=== PATIENT | female | born 1945 | race Caucasian/White ===

== ENCOUNTER 2016-09-30 10:25 | Outpatient (CLI) | payer MEDICARE, OTHER | END 2016-09-30 10:26 | disposition home or self-care (01) | DX: R07.89 Other chest pain (principal); R06.00 Dyspnea, unspecified | CPT/HCPCS: 78452; 93017; A9500 ==

== ENCOUNTER 2017-05-11 08:36 | Outpatient (CLI) | payer MEDICARE, OTHER | END 2017-05-11 08:37 | disposition home or self-care (01) | LOC: SC 08:36 | PROVIDERS: ATTEND Specialist | DX: F51.01 Primary insomnia (principal); R06.83 Snoring; G25.81 Restless legs syndrome | CPT/HCPCS: 99205; G0463; 99212 ==

== ENCOUNTER 2018-06-23 17:23 | Emergency (ER) | payer MEDICARE, OTHER ==
[2018-06-23] MEDS ORDERED: predniSONE 20 MG TABLET PO STA (18:07)
[2018-06-23] MEDS ORDERED: diphenhydrAMINE 25 MG CAPSULE PO STA (18:07)
--- NOTE | 2018-06-23 18:10 | ED Physician Documentation ---
History of Present Illness - Stated complaint Stated Complaint: ALLERGIC REACTION/EYES - Chief complaint Chief Complaint: Allergic Rx - History obtained from History obtained from: Patient, Family - History of Present Illness Timing: Today Pain level max: 3 Pain level now: 3 - Additonal information Additional information: Patient is a 72-year-old female that presents to the emergency department with redness and swelling to her face and eyelids after using a new lotion today. Has not taken anything for this. Has itching and burning. No difficulty speaking or swallowing. No difficulty breathing. 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 - Present Medications Home Medications: Ambulatory Orders Medication Instructions Recorded Confirmed predniSONE [Prednisone] 20 mg PO DAILY #5 tablet 06/23/18 - Allergies Allergies/Adverse Reactions: Allergies Allergy/AdvReac Type Severity Reaction Status Date / Time Sulfa (Sulfonamide AdvReac Headache Verified 06/23/18 17:35 Antibiotics) PD ED PE NORMAL - Vitals Vital signs reviewed: Yes - General General: Alert and oriented X 3, No acute distress - HEENT HEENT: Moist mucous membranes - Neck Neck: Supple, no meningeal sign - Cardiac Cardiac: RRR - Respiratory Respiratory: No respiratory distress, Clear bilaterally - Derm Derm: Warm and dry - Neuro Neuro: Alert and oriented X 3 - Psych Psych: Normal mood, Normal affect - Free text exam Free text exam: Erythema and swelling to the bilateral eyelids and face. Mild conjunctival injection with tearing. Results - Vitals Vitals: Vital Signs - 24 hr 06/23/18 17:32 Temperature 36.4 C L Heart Rate 98 Respiratory 18 Rate Blood Pressure 170/103 H O2 Saturation 97 Oxygen O2 Source Room air PD MEDICAL DECISION MAKING - ED course Complexity details: considered differential, d/w patient, d/w family ED course: Patient is a 72-year-old female with an allergic reaction to face cream. Will place on steroids and Benadryl. We will have her follow-up with her doctor for further care. Patient counseled regarding signs and symptoms for which I believe and urgent re-evaluation would be necessary. Patient with good understanding of and agreement to plan and is comfortable going home at this troy e This document was made in part using voice recognition software. While efforts are made to proofread this document, sound alike and grammatical errors may occur. - Sepsis Event Vital Signs: Vital Signs - 24 hr 06/23/18 17:32 Temperature 36.4 C L Heart Rate 98 Respiratory 18 Rate Blood Pressure 170/103 H O2 Saturation 97 Oxygen O2 Source Room air Departure - Departure Disposition: Home, Self Care Clinical Impression: Allergic reaction Qualifiers: Encounter type: initial encounter Qualified Code(s): T78.40XA - Allergy, unspecified, initial encounter Condition: Good Instructions: ED Allergic Reaction General Other Follow-Up: Mavis Cortes MD [Primary Care Provider] - Within 1 week Prescriptions: predniSONE [Prednisone] 20 mg PO DAILY #5 tablet Comments: Take the steroids as prescribed. Return if you worsen. You can also use Benadryl at home, 25 mg every 6 hours. Please do not use the face cream anymore
[2018-06-23 18:33] VITALS: BP 153/80
== END 2018-06-23 18:32 | disposition home or self-care (01) ==
LOC: ED 17:23
DX: T78.49XA Other allergy, initial encounter (principal); X58.XXXA Exposure to other specified factors, initial encounter; R22.9 Localized swelling, mass and lump, unspecified
CPT/HCPCS: 99283; A9270; J7512

== ENCOUNTER 2019-04-12 15:47 | Outpatient (CLI) | payer MEDICARE, OTHER ==
--- NOTE | 2019-04-13 09:15 | Mammography Report ---
Reason: SCREENING MAMMO Procedure Date: 04/12/2019 Accession Number: [id number] / [id number] Procedure: SINCERE - Screening Mammo w/Elia CPT Code: FULL RESULT: EXAM: Screening Mammo w/Elia DATE: 04/12/2019 4:16 PM CLINICAL HISTORY: Screening encounter. No reported risk factors. TECHNIQUE: (B) - Bilateral CC and MLO views were obtained. A left laterally exaggerated CC views obtained. COMPARISON: 10/16/2015 through 09/29/2013. PARENCHYMAL PATTERN: (D) - The breast(s) demonstrate(s) heterogeneously dense fibroglandular parenchyma. FINDINGS: There are coarse typically benign calcifications. There are no suspicious masses, calcifications, or areas of distortion. IMPRESSION: Benign findings. BI-RADS category 2. RECOMMENDATION: (ANNUAL) - Recommend routine annual screening mammography. BI-RADS CATEGORY: (2) - Benign Findings. STANDARD QUALIFYING STATEMENTS: 1. This examination was not reviewed with the aid of Computer-Aided Detection (CAD). 2. A negative or benign imaging report should not preclude biopsy if clinically suspicious findings are present. 3. Dense breasts may obscure an underlying neoplasm. 4. This examination was reviewed with the aid of 3D breast imaging (tomosynthesis).
== END 2019-04-12 15:48 | disposition home or self-care (01) ==
LOC: DI 15:47
PROVIDERS: ATTEND Internal Medicine
DX: Z12.31 Encounter for screening mammogram for malignant neoplasm of breast (principal)
CPT/HCPCS: 77063; 77067

== ENCOUNTER 2019-06-28 16:08 | Outpatient (CLI) | payer MEDICARE, OTHER ==
[2019-06-28 16:21] LABS: BILIRUBIN,URINE NEGATIVE (NEGATIVE); GLUCOSE, URINE (UA) NEGATIVE (NEGATIVE); KETONES,URINE (UA) NEGATIVE (NEGATIVE); LEUKOCYTE ESTERASE, URINE SMALL (NEGATIVE); NITRITE,URINE NEGATIVE (NEGATIVE); OCCULT BLOOD,URINE NEGATIVE (NEGATIVE); PROTEIN,URINE NEGATIVE (NEGATIVE); UROBILINOGEN,URINE 0.2 (NORMAL) E.U./dL (NORMAL)
[2019-06-28 16:29] LABS: CLARITY,URINE CLEAR (CLEAR)
[2019-06-28 16:30] LABS: BACTERIA,URINE Rare /HPF (None Seen); RBC,URINE 0-5 /HPF (0-5); SQUAMOUS EPITHELIAL CELL,UR RARE Squamous (<= Few); WBC CLUMPS,URINE PRESENT
== END 2019-06-28 16:09 | disposition home or self-care (01) ==
LOC: LAB 16:08
PROVIDERS: ATTEND Urology
DX: N39.0 Urinary tract infection, site not specified (principal)
CPT/HCPCS: 81001; 87086

== ENCOUNTER 2021-02-20 08:25 | Outpatient (CLI) | payer MEDICARE, OTHER ==
[2021-02-20] MEDS ORDERED: IOPAMIDOL-300 50 ML VIAL ONE (11:11)
[2021-02-20] MEDS ORDERED: IOVERSOL 320 100 ML VIAL IVP ONE ×2 (11:11→13:15)
[2021-02-20 11:24] LABS: CREATININE 0.6 mg/dL (0.4-1.0)
[2021-02-20] MEDS ORDERED: IOPAMIDOL-300 50 ML VIAL PO ONE (13:15)
--- NOTE | 2021-02-20 16:46 | CT Report ---
PROCEDURE: Abdomen/Pelvis W INDICATIONS: BILATERAL PELVIC PAIN CONTRAST: IV CONTRAST: Optiray 320 ml: 100 PO CONTRAST: Isovue 300 ml50 TECHNIQUE: After the administration of contrast, 5 mm thick sections acquired from the diaphragms to the sym physis. 5 mm thick coronal and sagittal reformats were acquired. For radiation dose reduction, the following was used: automated exposure control, adjustment of mA and/or kV according to patient size . COMPARISON: None. FINDINGS: Image quality: Excellent. ABDOMEN: Lung bases: Lung bases are clear. Heart size is normal. Solid organs: Liver and spleen are normal in size and enhancement. Gallbladder appears normal Bili lior system is non dilated. Pancreas enhances normally. No adrenal nodules. Kidneys demonstrate nor mal size and enhancement, without hydronephrosis. Peritoneum and bowel: Bowel loops demonstrate normal wall thickness and caliber. No free fluid or a ir. Nodes and vessels: No retroperitoneal or mesenteric adenopathy by size criteria. Aorta and inferior vena cava are normal in size. Miscellaneous: No ventral hernias. PELVIS: Genitourinary: Bladder wall thickness is normal. Apparent prior hysterectomy. No adnexal pathology found. Miscellaneous: No inguinal hernias or adenopathy. Diverticulosis is present at the sigmoid colon bu t no acute diverticulitis is found. Bones: No suspicious bony lesions. No vertebral body compression fractures. IMPRESSION: A definite source of current pelvic pain and lower abdominal pain is not seen. Apparent prior hysterectomy. No adnexal pathology found. Throughout the abdomen and pelvis no underlying infec tion or neoplasm is suspected. Reviewed by: Milo Hernandez MD on 02/20/2021 3:45 PM [email or web address] Approved by: Milo Hernandez MD on 02/20/2021 3:45 PM AKDT Station ID: [id number]
== END 2021-02-20 08:26 | disposition home or self-care (01) ==
LOC: LAB 08:25
PROVIDERS: ATTEND Internal Medicine
DX: R10.2 Pelvic and perineal pain (principal); Z79.899 Other long term (current) drug therapy
CPT/HCPCS: 36415; 74177; 82565; Q9967

== ENCOUNTER 2021-04-18 12:14 | Outpatient (CLI) | payer MEDICARE, OTHER ==
[2021-04-18 14:36] LABS: BASOPHILS # (AUTO) 0.1 10^3/uL (0.0-0.1); BASOPHILS % (AUTO) 0.7 %; EOSINOPHILS # (AUTO) 0.2 10^3/uL (0.0-0.7); EOSINOPHILS % (AUTO) 2.1 %; HCT - HEMATOCRIT 42.9 % (37.0-47.0); HGB - HEMOGLOBIN 14.1 g/dL (12.0-16.0); LYMPHOCYTES # (AUTO) 1.5 10^3/uL (1.5-3.5); LYMPHOCYTES % (AUTO) 20.6 %; MEAN CORPUSCULAR HEMOGLOBIN 29.4 pg (27.0-31.0); MEAN CORPUSCULAR HGB CONC 32.9 g/dL (32.0-36.0); MEAN CORPUSCULAR VOLUME 89.6 fL (81.0-99.0); MEAN PLATELET VOLUME 11.1 fL (7.9-10.8); MONOCYTES # (AUTO) 0.5 10^3/uL (0.0-1.0); MONOCYTES % (AUTO) 6.7 %; NEUTROPHILS % (AUTO) 69.5 %; PLT - PLATELET COUNT 306 10^3/uL (130-450); RED BLOOD COUNT 4.79 10^6/uL (4.20-5.40); RED CELL DISTRIBUTION WIDTH 13.4 % (12.0-15.0); WHITE BLOOD COUNT 7.2 x10^3/uL (4.8-10.8)
[2021-04-18 14:59] LABS: ALBUMIN 4.5 g/dL (3.2-5.5); ALBUMIN/GLOBULIN RATIO 1.6 (1.0-2.2); CALCIUM 9.3 mg/dL (8.5-10.3); CREATININE 0.5 mg/dL (0.4-1.0); POTASSIUM 3.9 mmol/L (3.5-5.0); TOTAL PROTEIN 7.3 g/dL (6.7-8.2)
== END 2021-04-18 12:15 | disposition home or self-care (01) ==
LOC: LAB.S 12:14
PROVIDERS: ATTEND Internal Medicine
DX: R19.7 Diarrhea, unspecified (principal); R63.4 Abnormal weight loss; A04.72 Enterocolitis due to Clostridium difficile, not specified as recurrent
CPT/HCPCS: 36415; 80053; 85025

== ENCOUNTER 2021-05-02 08:00 | Outpatient (CLI) | payer MEDICARE, OTHER | END 2021-05-02 23:59 | disposition home or self-care (01) | LOC: LAB.S 08:00 | PROVIDERS: ATTEND Physician Assistant Medical | DX: R39.15 Urgency of urination (principal) | CPT/HCPCS: 87086; 87181 ==

== ENCOUNTER 2021-07-29 15:07 | Outpatient (CLI) | payer MEDICARE, OTHER ==
--- NOTE | 2021-07-29 15:57 | DEXA Report ---
PROCEDURE: Dexa Spine and/or Hip INDICATIONS: OSTEOPENIA TECHNIQUE: Dual energy x-ray absorptiometry (DXA) was performed on a [employer] System. Regions measur ed are the AP Spine, femoral neck, and if needed forearm. COMPARISON: None. FINDINGS: Lumbar Spine: Bone Mineral Density 1.161 g/cm/cm,T score -0.2, normal bone density Left Hip: Bone Mineral Density 0.878 g/cm/cm,T score -1.0, normal bone density Left Femoral Neck: Bone Mineral Density 0.833 g/cm/cm, T score -1.5, osteopenia (T score greater or equal to -1.0: NORMAL) (T score from -1.1 to -2.4: OSTEOPENIA) (T score less than or equal to -2.5 to: OSTEOPOROSIS) Impression: OSTEOPENIA. Patient is at increased risk for fracture. Patients with diagnosis of osteoporosis or osteopenia should have regular bone mineral density assess ment. For those eligible for Medicare, routine testing is allowed once every 2 years. Testing frequ ency can be increased for patients who have rapidly progressing disease or for those who are receivin g medical therapy to restore bone mass. Reviewed by: Jerzy Bishop MD on 07/29/2021 3:56 PM PST Approved by: Jerzy Bishop MD on 07/29/2021 3:56 PM PST Station ID: [id number]
== END 2021-07-29 15:08 | disposition home or self-care (01) ==
LOC: DI 15:07
PROVIDERS: ATTEND Internal Medicine
DX: M85.89 Other specified disorders of bone density and structure, multiple sites (principal)

== ENCOUNTER 2021-08-25 08:00 | Outpatient (CLI) | payer MEDICARE, OTHER ==
[2021-08-25 16:48] LABS: BILIRUBIN,URINE NEGATIVE (NEGATIVE); GLUCOSE, URINE (UA) NEGATIVE (NEGATIVE); KETONES,URINE (UA) NEGATIVE (NEGATIVE); LEUKOCYTE ESTERASE, URINE MODERATE (NEGATIVE); NITRITE,URINE NEGATIVE (NEGATIVE); OCCULT BLOOD,URINE NEGATIVE (NEGATIVE); PROTEIN,URINE NEGATIVE (NEGATIVE); UROBILINOGEN,URINE 0.2 (NORMAL) E.U./dL (NORMAL)
[2021-08-25 16:54] LABS: CLARITY,URINE CLOUDY (CLEAR)
[2021-08-25 17:34] LABS: RBC,URINE 0-5 /HPF (0-5); WBC,URINE >25 /HPF (0-5)
[2021-08-25 17:35] LABS: BACTERIA,URINE Moderate /HPF (None Seen); SQUAMOUS EPITHELIAL CELL,UR FEW Squamous (<= Few)
== END 2021-08-25 08:01 | disposition home or self-care (01) ==
LOC: LAB.R 08:00
PROVIDERS: ATTEND Internal Medicine
DX: R39.9 Unspecified symptoms and signs involving the genitourinary system (principal)
CPT/HCPCS: 81001; 81003; 87086; 87181

== ENCOUNTER 2021-10-22 10:34 | Outpatient (CLI) | payer MEDICARE, OTHER ==
--- NOTE | 2021-10-22 13:25 | XRAY Report ---
PROCEDURE: Elbow 3 View RT INDICATIONS: RT ELBOW PX TECHNIQUE: 3 views of the elbow were acquired. COMPARISON: None. FINDINGS: Bones: No fractures or dislocations. No suspicious bony lesions. Moderate degenerative change about the elbow joint demonstrable by joint space narrowing and osteophytosis. Soft tissues: No elbow joint effusion. No suspicious soft tissue calcifications. IMPRESSION: Moderate right elbow DJD. Reviewed by: Fred Santiago MD on 10/22/2021 1:23 PM PST Approved by: Fred Santiago MD on 10/22/2021 1:23 PM PST Station ID: [id number]
== END 2021-10-22 10:35 | disposition home or self-care (01) ==
LOC: DI 10:34
PROVIDERS: ATTEND Internal Medicine
DX: M19.021 Primary osteoarthritis, right elbow (principal)

== ENCOUNTER 2021-11-17 07:13 | Outpatient (CLI) | payer MEDICARE, OTHER ==
[2021-11-17 14:57] LABS: THYROID STIMULATING HORMONE 2.17 uIU/mL (0.34-5.60)
== END 2021-11-17 07:14 | disposition home or self-care (01) ==
LOC: LAB.S 07:13
PROVIDERS: ATTEND Psychiatry & Neurology Neurology
DX: R41.3 Other amnesia (principal); E55.9 Vitamin D deficiency, unspecified
CPT/HCPCS: 36415; 82306; 82607; 82746; 84443

== ENCOUNTER 2022-02-17 08:00 | Outpatient (CLI) | payer MEDICARE, OTHER ==
[2022-02-17 15:39] LABS: BILIRUBIN,URINE NEGATIVE (NEGATIVE); CLARITY,URINE HAZY (CLEAR); GLUCOSE, URINE (UA) NEGATIVE (NEGATIVE); KETONES,URINE (UA) NEGATIVE (NEGATIVE); LEUKOCYTE ESTERASE, URINE SMALL (NEGATIVE); NITRITE,URINE NEGATIVE (NEGATIVE); OCCULT BLOOD,URINE NEGATIVE (NEGATIVE); PROTEIN,URINE NEGATIVE (NEGATIVE); UROBILINOGEN,URINE 0.2 (NORMAL) E.U./dL (NORMAL)
[2022-02-17 15:42] LABS: BACTERIA,URINE Many /HPF (None Seen); RBC,URINE 0-5 /HPF (0-5); SQUAMOUS EPITHELIAL CELL,UR FEW Squamous (<= Few); WBC CLUMPS,URINE PRESENT; WBC,URINE >25 /HPF (0-5)
== END 2022-02-17 23:59 | disposition home or self-care (01) ==
LOC: LAB 08:00
PROVIDERS: ATTEND Internal Medicine
DX: R39.9 Unspecified symptoms and signs involving the genitourinary system (principal); N39.0 Urinary tract infection, site not specified
CPT/HCPCS: 81001; 81003; 87077; 87086; 87181

== ENCOUNTER 2022-03-06 08:00 | Outpatient (CLI) | payer MEDICARE, OTHER ==
[2022-03-06 16:17] LABS: BILIRUBIN,URINE NEGATIVE (NEGATIVE); GLUCOSE, URINE (UA) NEGATIVE (NEGATIVE); KETONES,URINE (UA) NEGATIVE (NEGATIVE); LEUKOCYTE ESTERASE, URINE MODERATE (NEGATIVE); NITRITE,URINE NEGATIVE (NEGATIVE); OCCULT BLOOD,URINE LARGE (NEGATIVE); PH,URINE 5.5 PH (5.0-7.5); PROTEIN,URINE 30 mg/dL (NEGATIVE); UROBILINOGEN,URINE 0.2 (NORMAL) E.U./dL (NORMAL)
[2022-03-06 16:20] LABS: CLARITY,URINE CLOUDY (CLEAR)
[2022-03-06 16:42] LABS: RBC,URINE TNTC /HPF (0-5); WBC,URINE >25 /HPF (0-5)
[2022-03-06 16:43] LABS: BACTERIA,URINE Moderate /HPF (None Seen); SQUAMOUS EPITHELIAL CELL,UR NONE SEEN (<= Few)
== END 2022-03-06 23:59 | disposition home or self-care (01) ==
LOC: LAB.R 08:00
PROVIDERS: ATTEND Internal Medicine
DX: R39.9 Unspecified symptoms and signs involving the genitourinary system (principal)
CPT/HCPCS: 81001; 87086; 87181

== ENCOUNTER 2022-04-14 08:00 | Outpatient (CLI) | payer MEDICARE, OTHER ==
[2022-04-14 16:01] LABS: BILIRUBIN,URINE NEGATIVE (NEGATIVE); GLUCOSE, URINE (UA) NEGATIVE (NEGATIVE); KETONES,URINE (UA) TRACE mg/dL (NEGATIVE); LEUKOCYTE ESTERASE, URINE MODERATE (NEGATIVE); NITRITE,URINE NEGATIVE (NEGATIVE); OCCULT BLOOD,URINE MODERATE (NEGATIVE); PH,URINE 5.5 PH (5.0-7.5); PROTEIN,URINE 30 mg/dL (NEGATIVE); UROBILINOGEN,URINE 0.2 (NORMAL) E.U./dL (NORMAL)
[2022-04-14 16:05] LABS: CLARITY,URINE CLOUDY (CLEAR)
[2022-04-14 16:19] LABS: WBC,URINE >25 /HPF (0-5)
[2022-04-14 16:20] LABS: BACTERIA,URINE Moderate /HPF (None Seen); CRYSTALS,URINE 11-25 Ca Oxalate /LPF; SQUAMOUS EPITHELIAL CELL,UR RARE Squamous (<= Few)
== END 2022-04-14 23:59 | disposition home or self-care (01) ==
LOC: LAB.R 08:00
PROVIDERS: ATTEND Internal Medicine
DX: R39.9 Unspecified symptoms and signs involving the genitourinary system (principal)
CPT/HCPCS: 81001; 87077; 87086; 87181

== ENCOUNTER 2022-07-21 08:00 | Outpatient (CLI) | payer MEDICARE, OTHER ==
[2022-07-21 15:58] LABS: BILIRUBIN,URINE NEGATIVE (NEGATIVE); GLUCOSE, URINE (UA) NEGATIVE (NEGATIVE); KETONES,URINE (UA) NEGATIVE (NEGATIVE); LEUKOCYTE ESTERASE, URINE MODERATE (NEGATIVE); NITRITE,URINE NEGATIVE (NEGATIVE); OCCULT BLOOD,URINE SMALL (NEGATIVE); PROTEIN,URINE NEGATIVE (NEGATIVE); UROBILINOGEN,URINE 0.2 (NORMAL) E.U./dL (NORMAL)
[2022-07-21 16:00] LABS: CLARITY,URINE CLOUDY (CLEAR)
== END 2022-07-21 23:59 | disposition home or self-care (01) ==
LOC: LAB.R 08:00
PROVIDERS: ATTEND Internal Medicine
DX: R39.9 Unspecified symptoms and signs involving the genitourinary system (principal); R32 Unspecified urinary incontinence
CPT/HCPCS: 81003; 87086

== ENCOUNTER 2022-07-31 08:00 | Outpatient (CLI) | payer MEDICARE, OTHER ==
[2022-07-31 17:37] LABS: BASOPHILS # (AUTO) 0.1 10^3/uL (0.0-0.1); BASOPHILS % (AUTO) 0.8 %; EOSINOPHILS # (AUTO) 0.2 10^3/uL (0.0-0.7); EOSINOPHILS % (AUTO) 2.5 %; HCT - HEMATOCRIT 42.9 % (37.0-47.0); HGB - HEMOGLOBIN 14.5 g/dL (12.0-16.0); LYMPHOCYTES # (AUTO) 1.3 10^3/uL (1.5-3.5); LYMPHOCYTES % (AUTO) 20.9 %; MEAN CORPUSCULAR HEMOGLOBIN 29.8 pg (27.0-31.0); MEAN CORPUSCULAR HGB CONC 33.8 g/dL (32.0-36.0); MEAN CORPUSCULAR VOLUME 88.3 fL (81.0-99.0); MONOCYTES # (AUTO) 0.4 10^3/uL (0.0-1.0); NEUTROPHILS # (AUTO) 4.2 10^3/uL (1.5-6.6); NEUTROPHILS % (AUTO) 68.3 %; PLT - PLATELET COUNT 279 10^3/uL (130-450); RED BLOOD COUNT 4.86 10^6/uL (4.20-5.40); RED CELL DISTRIBUTION WIDTH 13.7 % (12.0-15.0); WHITE BLOOD COUNT 6.1 x10^3/uL (4.8-10.8)
[2022-07-31 17:50] LABS: ALBUMIN 4.4 g/dL (3.2-5.5); ALBUMIN/GLOBULIN RATIO 1.4 (1.0-2.2); ALKALINE PHOSPHATASE 48 IU/L (42-121); ALT ALANINE AMINOTRANSFERASE 27 IU/L (10-60); AST ASPARTATE AMINOTRANSFERASE 25 IU/L (10-42); BILIRUBIN,TOTAL 0.8 mg/dL (0.2-1.0); BUN - BLOOD UREA NITROGEN 18 mg/dL (6-20); CARBON DIOXIDE - CO2 26 mmol/L (21-32); CHLORIDE 99 mmol/L (101-111); CHOL/HDL RATIO 3.9 (<4.4); CHOLESTEROL 193 mg/dL; CREATININE 0.6 mg/dL (0.4-1.0); GFR - MDRD 98 (>89); GLUCOSE 89 mg/dL (70-100); HDL CHOLESTEROL 50 mg/dL; LDL CHOLESTEROL,CALCULATED 114 mg/dL; LDL/HDL RATIO 2.3 (<4.4); POTASSIUM 3.8 mmol/L (3.5-5.0); SODIUM 137 mmol/L (135-145); TOTAL PROTEIN 7.6 g/dL (6.7-8.2); TRIGLYCERIDES 145 mg/dL; VLDL CHOLESTEROL 29 mg/dL
[2022-08-03 11:58] LABS: ESTIMATED AVERAGE GLUCOSE 120 mg/dL (70-100); HEMOGLOBIN A1c% 5.8 % (4.27-6.07)
[2022-08-04 14:08] LABS: ANTINUCLEAR ANTIBODIES IFA Negative (.)
== END 2022-07-31 23:59 | disposition home or self-care (01) ==
LOC: LAB.R 08:00
PROVIDERS: ATTEND Internal Medicine
DX: Z00.00 Encounter for general adult medical examination without abnormal findings (principal); F32.A Depression, unspecified; Z86.010 Personal history of colon polyps; I10 Essential (primary) hypertension; G47.00 Insomnia, unspecified; G35 Multiple sclerosis; I73.00 Raynaud's syndrome without gangrene
CPT/HCPCS: 80053; 80061; 83036; 83721; 84443; 85025; 86038

== ENCOUNTER 2022-08-05 13:57 | Outpatient (CLI) | payer MEDICARE, OTHER ==
--- NOTE | 2022-08-07 09:54 | Mammography Report ---
BILATERAL DIGITAL SCREENING MAMMOGRAM 3D/2D WITH EXAGGERATED CC: 08/05/2022 CLINICAL: Routine screening. Comparison is made to exams dated: 04/12/2019 mammogram, 10/16/2015 mammogram, 10/04/2014 mammogram, an d 09/29/2013 mammogram - [facility]. Both breasts are heterogeneously dense, which may obscure small masses (category c / 51-75% glandular tissue). No significant masses, calcifications, or other findings are seen in either breast. There has been no significant interval change. IMPRESSION: NEGATIVE There is no mammographic evidence of malignancy. A 1 year screening mammogram is recommended. Based on the Tyrer Cuzick model (a risk assessment model) the patients lifetime risk is 4.0% and her 10 year risk is 3.6%. According to the ACR, ACS, and NCCN guidelines, an annual breast MRI exam ros g with mammogram is recommended if the patients lifetime risk is 20% or greater. This exam was interpreted at Station ID: [id number]. NOTE: For mammograms, a report in lay terms will be sent to the patient. Approximately 15% of breast malignancies will not be visualized mammographically. In the management of a palpable breast mass, a negative mammogram must not discourage biopsy of a clinically suspicious lesion. Electronically Signed By: Fred Santiago M.D. [facility] [place]:08/06/2022 16:16:37 ACR BI-RADS Category 1: Negative 3341F PARENCHYMAL PATTERN: (D) - The breast(s) demonstrate(s) heterogeneously dense fibroglandular kathy bartholomew. BI-RADS CATEGORY: (1) - 1 RECOMMENDATION: (ANNUAL) - Recommend routine annual screening mammography. [id number] 1 year screening LATERALITY: (B)
== END 2022-08-05 13:58 | disposition home or self-care (01) ==
LOC: DI.S 13:57
PROVIDERS: ATTEND Internal Medicine
DX: Z12.31 Encounter for screening mammogram for malignant neoplasm of breast (principal)

== ENCOUNTER 2022-11-25 12:18 | Outpatient (CLI) | payer MEDICARE, OTHER ==
--- NOTE | 2022-11-25 19:26 | XRAY Report ---
PROCEDURE: Hip w/Pelvis 2-3V RT INDICATIONS: PAIN IN RIGHT HIP JOINT TECHNIQUE: AP pelvis with lateral view of the right hip. COMPARISON: None. FINDINGS: Bones: No fractures or dislocations. Pelvic ring appears intact. No suspicious bony lesions. Mode rate bilateral joint space narrowing and subchondral sclerosis and marginal osteophyte formation in t he hips. Mild degenerative changes in the pubic symphysis and lumbar spine. Soft tissues: The visualized bowel gas pattern is normal. No suspicious soft tissue calcifications. Neurostimulator device is seen with pulse generator projecting over the right pelvis. IMPRESSION: Moderate bilateral hip osteoarthrosis. No acute osseous abnormality. If symptoms persist or there is continued clinical concern, further evaluation with MRI or CT may be helpful. Reviewed by: Kleber Maldonado MD on 11/25/2022 7:24 PM PST Approved by: Kleber Maldonado MD on 11/25/2022 7:24 PM PST Station ID: [id number]
== END 2022-11-25 12:19 | disposition home or self-care (01) ==
LOC: DI 12:18
PROVIDERS: ATTEND Internal Medicine
DX: M16.0 Bilateral primary osteoarthritis of hip (principal)

== ENCOUNTER 2022-11-30 14:50 | Emergency (ER) | payer MEDICARE, OTHER ==
[2022-11-30 15:22] LABS: BASOPHILS # (AUTO) 0.1 10^3/uL (0.0-0.1); BASOPHILS % (AUTO) 0.7 %; EOSINOPHILS # (AUTO) 0.3 10^3/uL (0.0-0.7); EOSINOPHILS % (AUTO) 3.9 %; HCT - HEMATOCRIT 41.9 % (37.0-47.0); HGB - HEMOGLOBIN 13.8 g/dL (12.0-16.0); LYMPHOCYTES # (AUTO) 1.7 10^3/uL (1.5-3.5); LYMPHOCYTES % (AUTO) 20.8 %; MEAN CORPUSCULAR HEMOGLOBIN 29.3 pg (27.0-31.0); MEAN CORPUSCULAR HGB CONC 32.9 g/dL (32.0-36.0); MEAN PLATELET VOLUME 10.2 fL (7.9-10.8); MONOCYTES # (AUTO) 0.5 10^3/uL (0.0-1.0); MONOCYTES % (AUTO) 6.3 %; NEUTROPHILS # (AUTO) 5.6 10^3/uL (1.5-6.6); NEUTROPHILS % (AUTO) 68.1 %; PLT - PLATELET COUNT 297 10^3/uL (130-450); RED BLOOD COUNT 4.71 10^6/uL (4.20-5.40); RED CELL DISTRIBUTION WIDTH 13.7 % (12.0-15.0); WHITE BLOOD COUNT 8.3 x10^3/uL (4.8-10.8)
[2022-11-30 15:36] LABS: CALCIUM 9.2 mg/dL (8.5-10.3); CREATININE 0.7 mg/dL (0.4-1.0); MAGNESIUM 2.2 mg/dL (1.7-2.8); POTASSIUM 3.8 mmol/L (3.5-5.0)
--- NOTE | 2022-11-30 15:54 | ED Physician Documentation ---
PD HPI HEAD INJURY - Stated complaint Stated Complaint: NECK PX - Chief complaint Chief Complaint: Trauma Hd/Nk - History obtained from History obtained from: Patient - History of Present Illness Mechanism of head injury: Fell (she states she felt okay during the day and going to bed. Awoke about midnight for "my first potty trip of the night'. Getting up from toilet, she says her socks slipped and she fell forward onto her face. Denies injury chest/abd. Daze or passed out unknown duration but then awoke and slowly up.) Where head injury occurred: Home Timing - onset: How many days ago (1 1/2 days ago (Wednesday night and today is Wednesday).) Location of injury: Front (injury to nose/ forehead/ upper lip and has developed ecchymosis bilateral periorbital. has continued pain in neck with ROM. some numbness left hand but has that intermittently anyway.) Quality of pain: Pain, Aching Associated symptoms: LOC, Neck pain. No: Nausea / vomiting, Paresthesias Contributing factors: No: Anticoagulated, Intoxicated Similar symptoms before: Has not had sx before Recently seen: Not recently seen Review of Systems Constitutional: denies: Fever, Chills Eyes: denies: Decreased vision, Photophobia Nose: denies: Rhinorrhea / runny nose, Congestion Throat: denies: Sore throat Cardiac: denies: Chest pain / pressure Respiratory: denies: Cough GI: denies: Abdominal Pain Musculoskeletal: reports: Neck pain. denies: Back pain Neurologic: denies: Focal weakness, Confused, Altered mental status PD PAST MEDICAL HISTORY - Past Medical History Respiratory: None Neuro: Multiple sclerosis (with symptoms mostly cognitive, headaches, and dizziness. 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 - Present Medications Home Medications: Ambulatory Orders Medication Instructions Recorded Confirmed predniSONE [Prednisone] 20 mg PO DAILY #5 tablet 06/23/18 HYDROcod/ACETAM 5/325 [Gregory 5/325] 1 ea PO Q6H PRN #18 tablet 11/30/22 Naproxen 500 mg PO BID 10 Days #20 tab 11/30/22 tiZANidine [Zanaflex] 4 mg PO Q8H PRN #20 tablet 11/30/22 - Allergies Allergies/Adverse Reactions: Allergies Allergy/AdvReac Type Severity Reaction Status Date / Time Sulfa (Sulfonamide AdvReac Headache Verified 11/30/22 15:13 Antibiotics) - Social History Does the pt smoke?: No Smoking Status: Never smoker Does the pt drink ETOH?: No Does the pt have substance abuse?: No PD ED PE NORMAL - Vitals Vital signs reviewed: Yes - General General: Alert and oriented X 3, No acute distress, Well developed/nourished - HEENT HEENT: PERRL, EOMI (without diplopia nor pain.), Other (obvious swelling and tender with superficial abrasion on bridge of nose to tip. Upper lip with contusion and small inner mucosal lac. Nontender bilateral periorbital ecchymo ses. ) - Neck Neck: Supple, no meningeal sign, No adenopathy, Other (tender mid to lower neck without deformity. c-collar placed at triage. ) - Cardiac Cardiac: RRR, No murmur - Respiratory Respiratory: Clear bilaterally, Other (no chestwall tenderness. ) - Abdomen Abdomen: Soft, Non tender - Extremities Extremities: Normal ROM s pain - Neuro Neuro: Alert and oriented X 3, No motor deficit, No sensory deficit, Normal speech Results - Vitals Vitals: Vital Signs - 24 hr 11/30/22 11/30/22 11/30/22 14:57 15:12 17:12 Temperature 36.5 C 36.5 C Heart Rate 101 H 99 79 Respiratory 18 24 16 Rate Blood Pressure 186/97 H 200/100 H 164/92 H O2 Saturation 99 99 95 Oxygen O2 Source Room air - Labs Labs: Laboratory Tests 11/30/22 11/30/22 15:17 15:17 WBC 8.3 RBC 4.71 Hgb 13.8 Hct 41.9 MCV 89.0 MCH 29.3 MCHC 32.9 RDW 13.7 Plt Count 297 MPV 10.2 Neut # (Auto) 5.6 Lymph # (Auto) 1.7 [place] # (Auto) 0.5 Eos # (Auto) 0.3 Baso # (Auto) 0.1 Absolute Nucleated RBC 0.00 Nucleated RBC % 0.0 Sodium 141 Potassium 3.8 Chloride 105 Carbon Dioxide 28 Anion Gap 8.0 BUN 19 Creatinine 0.7 Estimated GFR (MDRD) 82 L Glucose 123 H Calcium 9.2 Magnesium 2.2 - Rads (name of study) head/face cT Relevant Findings:: Prelim report reviewed, EMP independent interpretation of test (nasal fracture, minimal displaced. No other injury noted. No ICH.), See rad report cervical spine Relevant Findings:: Prelim report reviewed (no fractures seen), See rad report PD Medical Decision Making - ED course Complexity details: reviewed results, considered differential (concern for nasal fracture but also consider midface fractures with the degree of bruising. Neck is hurting and consider cervical fracture given the mechanism of injury. can get cts fac/ehead/neck. ), d/w patient Reviewed Lab Results: CT imaging showing nasal fracture and no other acute process. CBC and chemistry panel ordered, reviewed and are good. Departure - Departure Disposition: 01 Home, Self Care Clinical Impression: Fall from slip, trip, or stumble, Nasal fracture, Facial contusion, Acute strain of neck muscle, Concussion Condition: Stable Record reviewed to determine appropriate education?: Yes Instructions: ED Concussion, ED Fx Nasal Conf W X Ray, ED Sprain Strain Neck Follow-Up: Mavis Cortes MD [Primary Care Provider] - [facility] [Provider Group] Prescriptions: Naproxen 500 mg PO BID 10 Days #20 tab HYDROcod/ACETAM 5/325 [Gregory 5/325] 1 ea PO Q6H PRN #18 tablet PRN Reason: Pain tiZANidine [Zanaflex] 4 mg PO Q8H PRN #20 tablet PRN Reason: Spasms Comments: You do have a nasal fracture that does not look significantly displaced. However he may still need follow-up if you notice you are having troubles with breathing through the nostrils or there is some deviated appearance once the swelling is down. Follow-up with ENT if any problems over a couple of weeks. Meanwhile use some saline nose spray a few times daily to help cleanse the nasal passage of any dried blood etc. There were no other fracture seen in the face. No fractures seen in the neck. You do have some arthritic changes in the neck but no signs of acute injury. Presume the pain there could be some flareup of arthritis or more commonly some sprain and strain of the ligaments and muscles. Your head CT did not show any bleeding inside. However your symptoms described are suggestive of a mild concussion. You can anticipate some lightheadedness, off balance, headaches over the next several days or so still. I prescribed some naproxen anti-inflammatory along with tizanidine muscle relaxant and to that add Tylenol every 4-6 hours for pain or hydrocodone/acetaminophen if needed for worse pain. I sent your prescriptions to [facility] pharmacy in [place]. I am prescribing a short course of narcotic pain medication for you. These are potentially dangerous and addictive medications that should be used carefully. These medications may constipate you. Take an eebe-cxf-[id number] stool softener such as docusate twice daily with plenty of water while taking these medications. If you go 24 hours without a bowel movement, take [id number]-[id number] MiraLAX, per package instructions. Do not drink or drive while taking these medications. If you received narcotic or sedating medications while in the emergency department do not drive for 24 hours. Store this medication in a safe, secure place and out of reach of children. It is a violation of federal law to give or sell this medication to another person or to use in a manner other than prescribed. The ED will not refill narcotic prescriptions, including prescriptions lost or stolen. You can dispose of unwanted medications at the [facility]'s office or at several pharmacies such as [facility]. Discharge Date/Time: 11/30/22 18:17
[2022-11-30] MEDS ORDERED: HYDROmorphone 1 MG/ML CARPUJECT IVP STA (16:27)
[2022-11-30] MEDS ORDERED: KETOROLAC 15 MG/ML VIAL IVP STA (16:27)
--- NOTE | 2022-11-30 17:00 | CT Report ---
PROCEDURE: HEAD WO INDICATIONS: fall forward: face/neck injury TECHNIQUE: Noncontrast 4.5 mm thick angled axial sections acquired from the foramen magnum to the vertex. For r adiation dose reduction, the following was used: automated exposure control, adjustment of mA and/or kV according to patient size. COMPARISON: None. FINDINGS: Image quality: Excellent. CSF spaces: Basal cisterns are patent. No extra-axial fluid collections. Ventricles are normal in size and shape. Brain: No midline shift. No intracranial masses or hemorrhage. Mota-white matter interface is norm al. Marked periventricular white matter hypoattenuation, greater than expected for age. Skull and face: Calvarium and visualized facial bones are intact, without suspicious lesions. Sinuses: Visualized sinuses and mastoids are clear. IMPRESSION: 1.No acute intracranial process. 2.Marked periventricular white matter hypoattenuation, typically seen in microangiopathy. Reviewed by: Sumit Brewster on 11/30/2022 4:59 PM PDT Approved by: Sumit Brewster on 11/30/2022 4:59 PM PDT Station ID: [id number]
--- NOTE | 2022-11-30 17:02 | CT Report ---
PROCEDURE: CERVICAL SPINE WO INDICATIONS: fall forward: face/neck injury TECHNIQUE: Noncontrast 3 mm thick sections acquired from the skull base to the T4 level. Sagittal and coronal r eformats were then constructed. For radiation dose reduction, the following was used: automated exp osure control, adjustment of mA and/or kV according to patient size. COMPARISON: None. FINDINGS: Image quality: Excellent. Bones: No fractures or dislocations. Visualized superior ribs are intact. Moderate, multilevel deg enerative disc disease. No severe spinal canal or neural foraminal narrowing. Soft tissues: Prevertebral soft tissues are normal in thickness. No paravertebral hematomas. No ap ical pneumothoraces. Subcentimeter right thyroid nodule, which does not meet size criteria for dedic ated ultrasound follow-up. IMPRESSION: No displaced fracture or traumatic subluxation. Reviewed by: Sumit Brewster on 11/30/2022 5:01 PM PDT Approved by: Sumit Brewster on 11/30/2022 5:01 PM PDT Station ID: [id number]
--- NOTE | 2022-11-30 17:04 | CT Report ---
PROCEDURE: MAXILLOFACIAL WO INDICATIONS: fall forward: face/neck injury TECHNIQUE: Noncontrast 1.5 mm thick axial images acquired from the mandible through the frontal sinuses, with co anthony and sagittal reformatting. For radiation dose reduction, the following was used: automated ex posure control, adjustment of mA and/or kV according to patient size. COMPARISON: None. FINDINGS: Image quality: Excellent. Bones and teeth: Orbital curry are intact. Sinus curry show no fracture or deformity. Mildly displa keri, comminuted nasal bone fracture. Visualized portions of the mandible demonstrate no fractures or subluxation. Zygomatic arches are intact. Pterygoid plates are intact. Visualized portions of the skull base and auditory canals are intact. Sinuses: Paranasal sinuses are aerated, without fluid levels, mucosal thickening, or mucoceles. Mas toid air cells are aerated. Soft tissues: Soft tissue edema surrounding the nasal bone. Vascular: Visualized vascular structures appear normal in the absence of contrast. Bony vascular fo ramina and canals are intact. IMPRESSION: Mildly displaced, comminuted nasal bone fracture. Reviewed by: Sumit Brewster on 11/30/2022 5:03 PM PDT Approved by: Sumit Brewster on 11/30/2022 5:03 PM PDT Station ID: [id number]
[2022-11-30 17:31] VITALS: BP 164/92
== END 2022-11-30 18:17 | disposition home or self-care (01) ==
LOC: ED 14:50
DX: S06.0X9A Concussion with loss of consciousness of unspecified duration, initial encounter (principal); S02.2XXA Fracture of nasal bones, initial encounter for closed fracture; S16.1XXA Strain of muscle, fascia and tendon at neck level, initial encounter; S00.83XA Contusion of other part of head, initial encounter; W18.11XA Fall from or off toilet without subsequent striking against object, initial encounter
CPT/HCPCS: 36415; 70450; 70486; 72125; 80048; 83735; 85025; 93005; 96374; 99283; 99284; J1170

== ENCOUNTER 2022-12-03 07:56 | Emergency (ER) | payer MEDICARE, OTHER ==
[2022-12-03] MEDS ORDERED: DEXAMETHASONE 10 MG/ML VIAL IM STA (09:24)
[2022-12-03] MEDS ORDERED: KETOROLAC 60 MG/2 ML VIAL IM STA (09:24)
[2022-12-03] MEDS ORDERED: HYDROmorphone 1 MG/ML CARPUJECT IM STA (09:24)
--- NOTE | 2022-12-03 09:29 | ED Physician Documentation ---
History of Present Illness - Stated complaint Stated Complaint: NECK PX - Chief complaint Chief Complaint: Back Pain - History obtained from History obtained from: Patient, Family - Additonal information Additional information: The patient comes to the emergency department chief complaint of ongoing neck and left shoulder pain after a ground-level fall 3 days ago. At that time, she had slipped and fallen onto her face and lost consciousness. It was not clear if it was a syncopal episode or if she lost consciousness because of the fall. She was seen here and worked up extensively with CTs of the face head and cervical spine, and found to have a nasal bone fracture but otherwise negative work-up. The patient was sent home with prescriptions for hydrocodone, naproxen, and Flexeril and states that none of the medications are doing anything for her. She states she cannot sleep at night and complains of a pain adjacent to her left neck in her shoulder musculature. She also complains of so me numbness in her left hand and states that she just "cannot" hold onto things with her left hand. The patient states that she just cannot go on like this and that is why she is coming in. The patient denies development of any neurologic deficits. She states the discomfort in her face is not too bad as long as she does not lean forward. PD PAST MEDICAL HISTORY - Past Medical History Respiratory: None Neuro: Multiple sclerosis (with symptoms mostly cognitive, headaches, and dizziness. ) Endocrine/Autoimmune: None GI: Other HEENT: Other Psych: Depression, Anxiety Musculoskeletal: None, Osteoarthritis, Osteopenia - Past Surgical History General: Appendectomy Ortho: Other /[employer] OP: Hysterectomy - Present Medications Home Medications: Ambulatory Orders Medication Instructions Recorded Confirmed predniSONE [Prednisone] 20 mg PO DAILY #5 tablet 06/23/18 HYDROcod/ACETAM 5/325 [Ludlow 5/325] 1 ea PO Q6H PRN #18 tablet 11/30/22 Naproxen 500 mg PO BID 10 Days #20 tab 11/30/22 tiZANidine [Zanaflex] 4 mg PO Q8H PRN #20 tablet 11/30/22 HYDROcod/ACETAM 5/325 [Ludlow 5/325] 1 - 2 tablet PO Q6H PRN #14 tablet 12/03/22 Lidocaine Patch 5% [Lidoderm Patch] 1 each TOP DAILY PRN #12 patch 12/03/22 predniSONE [Deltasone] 60 mg PO DAILY 3 Days #9 tablet 12/03/22 - Allergies Allergies/Adverse Reactions: Allergies Allergy/AdvReac Type Severity Reaction Status Date / Time Sulfa (Sulfonamide AdvReac Headache Verified 12/03/22 08:13 Antibiotics) - Social History Does the pt smoke?: No Smoking Status: Never smoker Does the pt drink ETOH?: No Does the pt have substance abuse?: No PD ED PE NORMAL - Vitals Vital signs reviewed: Yes - General General: Alert and oriented X 3, No acute distress, Well developed/nourished - HEENT HEENT: PERRL, EOMI, Moist mucous membranes, Other (Bruising of face, No deformity. Mild edema. ) - Neck Neck: Supple, no meningeal sign, No bony TTP, Other (Mildly limited range of motion of neck rotationally to both sides. Tenderness palpation over left trapezius muscle Medially, but not adjacent to spine. Muscular spasm palpable in the same area.) - Cardiac Cardiac: Strong equal pulses - Respiratory Respiratory: No respiratory distress - Back Back: No spinal TTP - Derm Derm: Warm and dry, Other (Normal color other than bruising on face) - Extremities Extremities: No deformity, Other (Good range of motion left shoulder. Tenderness palpation over left AC joint and superior scapula.) - Neuro Neuro: Alert and oriented X 3, process stripper 2-12 intact, No motor deficit (5+ strength nearly equal between right and left upper extremities. Wafer Substrate Tester strength slightly decreased on left versus right. Patient is noted to use left upper extremity frequently during conversation with normal mechanics. No ataxia), Normal speech - Psych Psych: Normal mood, Normal affect Results - Vitals Vitals: Oxygen O2 Source Room air - Rads (name of study) Thoracic spine XR series Relevant Findings:: Final report received, See rad report (Chronic L1 wedge compression, stable since 2020. No acute findings.) L shoulder XR series Relevant Findings:: Final report received, See rad report (degenerative changes, otherwise unremarkable.) PD Medical Decision Making - ED course Complexity details: reviewed old records, reviewed results, re-evaluated patient, considered differential, d/w patient ED course: I discussed with the patient that her work-up was actually quite reassuring the other day but that we could add x-rays of the thoracic spine and shoulder to be sure that there is not a bony injury there. The patient was not very amenable to the idea of anything helping her pain, despite a lengthy discussion about the reassuring nature of her exam, the option of increasing Or changing her pain medications, and the assurance that we can give her some analgesia in the emergency department. She stated "I cannot do this". I have discussed with her in a more direct manner that she does not have the option to "not do this", And that she will need to have a more positive outlook if she expects any medication to work for her. The pt's x-rays were all negative for acute findings. She insisted to nursing staff that the Dilaudid, Decadron and Toradol, had done nothing for her pain. At this point, I did decide to discharge the pt home. SHe has been worked up extensively to discover any serious injury or cause of this degree of intractable discomfort, and none has been found. I have increased the frequency and dose of her home analgesia, as I told her I would do. We have discussed the need for follow-up with her PCP for further concerns. Departure - Departure Disposition: Home, Self Care Clinical Impression: Injury of neck Qualifiers: Encounter type: initial encounter Qualified Code(s): S19.9XXA - Unspecified injury of neck, initial encounter Trapezius muscle strain Qualifiers: Encounter type: initial encounter Laterality: left Qualified Code(s): S46.812A - Strain of other muscles, fascia and tendons at shoulder and upper arm level, left arm, initial encounter Condition: Stable Instructions: ED Sprain Strain Neck Prescriptions: predniSONE [Deltasone] 60 mg PO DAILY 3 Days #9 tablet Lidocaine Patch 5% [Lidoderm Patch] 1 each TOP DAILY PRN #12 patch PRN Reason: Pain 5-7 HYDROcod/ACETAM 5/325 [Ludlow 5/325] 1 - 2 tablet PO Q6H PRN #14 tablet PRN Reason: Pain Comments: Your x-rays of your left shoulder and your thoracic spine look good. Additionally, when you were first seen here a few days ago, you had CT scans of the head, face, and neck, all of which look good. You do have tenderness over your left trapezius muscle which involves your neck, upper back, and shoulder, and you have some palpable muscle spasm there as well. This is most likely a response to the injury you sustained when you fell and it is probable that you strained some of the muscle fibers, which has contributed to your discomfort. You do have room in your pain medication regimen to go up on dosing and freq uency of the pain medication, and you may do this. Please take up to 2 tablets of your Vicodin every 4 hours, as needed for pain. A steroid may also be helpful, and prescriptions for both of these medications have been electronically transmitted to the [facility] pharmacy in [place]. You may also use ice, heat, massage, and stretching to help with the pain. It is important that you keep a positive mindset and do not enter into your pain treatment with the idea that "I cannot do this" or "nothing is going to work". If your mindset is such, nothing will work for you. Please follow-up with your primary doctor for any further concerns. No an emergent condition has been identified today. Discharge Date/Time: 12/03/22 11:50
--- NOTE | 2022-12-03 09:56 | XRAY Report ---
PROCEDURE: Thoracic Spine 3 View INDICATIONS: fall/pain TECHNIQUE: 3 views of the thoracic spine were acquired. COMPARISON: CT of abdomen and pelvis dated 02/20/2021. FINDINGS: Bones: No acute fracture or dislocation is seen in thoracic spine. Chronic-appearing anterior wedge c ompression deformity at L1 level is again seen unchanged from previous CT study. No suspicious bony l esions. Degenerative endplate changes are noted throughout mid to lower thoracic spine. 12 pairs of ribs are noted, and appear intact where visualized. Soft tissues: No paravertebral stripe thickening. IMPRESSION: Chronic-appearing anterior wedge compression deformity involving L1 level unchanged from 2020 study. No acute compression fracture or spondylolisthesis in thoracic spine. 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 Reviewed by: Esau Robbins MD on 12/03/2022 9:54 AM PDT Approved by: Esau Robbins MD on 12/03/2022 9:54 AM PDT Station ID: [id number]
--- NOTE | 2022-12-03 09:59 | XRAY Report ---
PROCEDURE: Shoulder 3 View LT INDICATIONS: fall/pain TECHNIQUE: 3 views of the shoulder were acquired. COMPARISON: None. FINDINGS: Bones: No fractures or dislocations. Moderate acromioclavicular joint and glenohumeral joint osteoar thritic changes are seen with joint space narrowing and subchondral sclerosis. No suspicious bony les ions. Visualized ribs appear intact. Soft tissues: No suspicious soft tissue calcifications. IMPRESSION: Moderate left shoulder joint osteoarthritis. No acute shoulder fracture or dislocation. No gross soft tissue abnormalities. Reviewed by: Esau Robbins MD on 12/03/2022 9:58 AM PDT Approved by: Esau Robbins MD on 12/03/2022 9:58 AM PDT Station ID: [id number]
[2022-12-03 11:26] VITALS: BP 148/76
== END 2022-12-03 11:50 | disposition home or self-care (01) ==
LOC: ED 07:56
DX: S19.9XXA Unspecified injury of neck, initial encounter (principal); S46.812A Strain of other muscles, fascia and tendons at shoulder and upper arm level, left arm, initial encounter; X58.XXXA Exposure to other specified factors, initial encounter
CPT/HCPCS: 72072; 73030; 96372; 99283; J1170

== ENCOUNTER 2023-03-17 08:49 | Outpatient (CLI) | payer MEDICARE, OTHER ==
[2023-03-17 09:33] LABS: % IRON SATURATION 25 % (20-50); IRON 83 ug/dL (28-170); TOTAL IRON BINDING CAPACITY 332 ug/dL (250-450); TRANSFERRIN 237 mg/dL (192-382)
[2023-03-17 09:54] LABS: CRP - C-REACTIVE PROTEIN < 1.0 mg/dL (0-1.0)
== END 2023-03-17 08:50 | disposition home or self-care (01) ==
LOC: LAB 08:49
DX: G25.81 Restless legs syndrome (principal); D50.9 Iron deficiency anemia, unspecified
CPT/HCPCS: 36415; 82728; 83540; 84466; 86140

== ENCOUNTER 2023-09-03 08:29 | Outpatient (CLI) | payer MEDICARE, OTHER ==
[2023-09-03 08:39] LABS: BASOPHILS # (AUTO) 0.1 10^3/uL (0.0-0.1); EOSINOPHILS # (AUTO) 0.3 10^3/uL (0.0-0.7); EOSINOPHILS % (AUTO) 4.8 %; HGB - HEMOGLOBIN 14.9 g/dL (12.0-16.0); LYMPHOCYTES # (AUTO) 1.6 10^3/uL (1.5-3.5); LYMPHOCYTES % (AUTO) 25.4 %; MEAN CORPUSCULAR HEMOGLOBIN 29.9 pg (27.0-31.0); MEAN CORPUSCULAR HGB CONC 33.9 g/dL (32.0-36.0); MEAN CORPUSCULAR VOLUME 88.2 fL (81.0-99.0); MONOCYTES # (AUTO) 0.5 10^3/uL (0.0-1.0); MONOCYTES % (AUTO) 7.3 %; NEUTROPHILS # (AUTO) 3.8 10^3/uL (1.5-6.6); NEUTROPHILS % (AUTO) 61.3 %; PLT - PLATELET COUNT 257 10^3/uL (130-450); RED BLOOD COUNT 4.99 10^6/uL (4.20-5.40); RED CELL DISTRIBUTION WIDTH 13.2 % (12.0-15.0); WHITE BLOOD COUNT 6.3 x10^3/uL (4.8-10.8)
[2023-09-03 08:59] LABS: ALBUMIN 4.5 g/dL (3.2-5.5); ALKALINE PHOSPHATASE 48 IU/L (42-121); ALT ALANINE AMINOTRANSFERASE 15 IU/L (10-60); AST ASPARTATE AMINOTRANSFERASE 15 IU/L (10-42); BILIRUBIN,TOTAL 0.8 mg/dL (0.2-1.0); BUN - BLOOD UREA NITROGEN 17 mg/dL (6-20); CARBON DIOXIDE - CO2 31 mmol/L (21-32); CHLORIDE 105 mmol/L (101-111); CHOL/HDL RATIO 3.7 (<4.4); CHOLESTEROL 195 mg/dL; CREATININE 0.7 mg/dL (0.6-1.3); GFR - MDRD 82 (>89); GLUCOSE 115 mg/dL (74-104); HDL CHOLESTEROL 53 mg/dL; LDL CHOLESTEROL,CALCULATED 97 mg/dL; LDL/HDL RATIO 1.8 (<4.4); POTASSIUM 3.9 mmol/L (3.5-4.5); SODIUM 140 mmol/L (135-145); TOTAL PROTEIN 6.8 g/dL (6.4-8.9); TRIGLYCERIDES 226 mg/dL (48-352); VLDL CHOLESTEROL 45 mg/dL
[2023-09-03 09:14] LABS: THYROID STIMULATING HORMONE 2.73 uIU/mL (0.34-5.60)
[2023-09-03 11:02] LABS: ESTIMATED AVERAGE GLUCOSE 108 mg/dL (70-100); HEMOGLOBIN A1c% 5.4 % (4.27-6.07)
== END 2023-09-03 08:30 | disposition home or self-care (01) ==
LOC: LAB 08:29
PROVIDERS: ATTEND Internal Medicine
DX: Z00.00 Encounter for general adult medical examination without abnormal findings (principal); K76.0 Fatty (change of) liver, not elsewhere classified; H91.90 Unspecified hearing loss, unspecified ear; Z86.010 Personal history of colon polyps; I10 Essential (primary) hypertension; G35 Multiple sclerosis; Z79.899 Other long term (current) drug therapy; H93.19 Tinnitus, unspecified ear; G62.9 Polyneuropathy, unspecified
CPT/HCPCS: 36415; 80053; 80061; 83036; 83721; 84443; 85025

== ENCOUNTER 2023-09-28 15:04 | Outpatient (CLI) | payer MEDICARE, OTHER ==
--- NOTE | 2023-10-01 11:35 | Mammography Report ---
BILATERAL DIGITAL SCREENING MAMMOGRAM 3D/2D: 09/28/2023 CLINICAL: Routine screening. Comparison is made to exams dated: 08/05/2022 mammogram, 04/12/2019 mammogram, and 10/16/2015 mammogra m - [facility]. Both breasts are heterogeneously dense, which may obscure small masses (category c / 51-75% glandular tissue). No significant masses, calcifications, or other findings are seen in either breast. There has been no significant interval change. IMPRESSION: NEGATIVE There is no mammographic evidence of malignancy. A 1 year screening mammogram is recommended. Based on the Tyrer Cuzick model (a risk assessment model) the patients lifetime risk is 3.7% and her 10 year risk is 3.7%. According to the ACR, ACS, and NCCN guidelines, an annual breast MRI exam ros g with mammogram is recommended if the patients lifetime risk is 20% or greater. This exam was interpreted at Station ID: [id number]. NOTE: For mammograms, a report in lay terms will be sent to the patient. Approximately 15% of breast malignancies will not be visualized mammographically. In the management of a palpable breast mass, a negative mammogram must not discourage biopsy of a clinically suspicious lesion. Electronically Signed By: Fred fine/jayleen:09/29/2023 10:59:20 ACR BI-RADS Category 1: Negative [id number] PARENCHYMAL PATTERN: (D) - The breast(s) demonstrate(s) heterogeneously dense fibroglandular kathy bartholomew. BI-RADS CATEGORY: (1) - 1 Mammogram [id number] 1 year screening LATERALITY: (B)
== END 2023-09-28 15:05 | disposition home or self-care (01) ==
LOC: DI 15:04
PROVIDERS: ATTEND Internal Medicine
DX: Z12.31 Encounter for screening mammogram for malignant neoplasm of breast (principal); R92.333 Mammographic heterogeneous density, bilateral breasts